=== PATIENT | female | born 1985 | race Caucasian/White ===

== ENCOUNTER 2018-08-30 23:37 | Emergency (ER) | payer SELFPAY ==
[~2018-08-30] VITALS: Ht 170.2 cm; Wt 86.4 kg
[2018-08-31 00:55] LABS: BASOPHILS % (AUTO) 0.8 % (0.0-2.0); EOSINOPHILS % (AUTO) 1.3 % (1.0-6.0); HEMATOCRIT 41.6 % (36-46); HEMOGLOBIN 13.8 g/dL (12.0-16.0); LYMPHOCYTES # (AUTO) 4.2 K/uL (1.0-4.8); LYMPHOCYTES % (AUTO) 57.5 % (22.0-44.0); MEAN CORPUSCULAR HEMOGLOBIN 29.4 pg (26.0-34.0); MEAN CORPUSCULAR HGB CONC 33.3 G/dL (31.0-37.0); MEAN CORPUSCULAR VOLUME 89 fL (80-100); MONOCYTES # (AUTO) 0.4 K/uL (0.1-1.0); MONOCYTES % (AUTO) 5.1 % (2.0-9.0); NEUTROPHILS # (AUTO) 2.6 K/uL (1.8-7.7); NEUTROPHILS % (AUTO) 35.3 % (40.0-70.0); PLATELET COUNT (AUTO) 297 K/uL (150-450); RED CELL DISTRIBUTION WIDTH 13.8 % (11.5-14.5)
[2018-08-31 01:04] LABS: ANION GAP 6 mmol/L (8-16); CALCIUM, TOTAL 8.7 mg/dL (8.8-10.5); CARBON DIOXIDE 30 mmol/L (22-29); CHLORIDE 102 mmol/L (98-107); CREATININE 0.64 mg/dL (0.60-1.30); GLOMERULAR FILTR. RATE CALC > 60 mL/min (>60); GLUCOSE,RANDOM 98 mg/dL (70-110); SODIUM SERUM 138 mmol/L (136-145); UREA NITROGEN, BLOOD 9 mg/dL (7-18)
[2018-08-31 01:04] LABS: AMPHET/METH SCREEN,URINE NEGATIVE (NEGATIVE); BARBITURATE SCREEN, URINE NEGATIVE (NEGATIVE); BENZODIAZEPINES SCREEN,URINE NEGATIVE (NEGATIVE); CANNABINOID SCREEN,URINE NEGATIVE (NEGATIVE); COCAINE SCREEN,URINE NEGATIVE (NEGATIVE); METHADONE SCREEN, URINE NEGATIVE (NEGATIVE); OPIATE SCREEN,URINE NEGATIVE (NEGATIVE)
[2018-08-31 01:07] LABS: PHENCYCLIDINE SCREEN,URINE NEGATIVE (NEGATIVE)
[2018-08-31] MEDS ORDERED: ESCI20TA PO (01:09)
[2018-08-31 01:15] LABS: ALANINE AMINOTRANSFERASE 38 U/L (12-78); ALBUMIN 3.9 g/dL (3.4-5.0); ALKALINE PHOSPHATASE 113 U/L (46-116); ASPARTATE AMINOTRANSFERASE 28 U/L (15-37); BILIRUBIN,TOTAL 0.2 mg/dL (0.1-1.0); HCG,QUANTITATIVE < 1 mIU/mL (0-6)
[2018-08-31 05:15] VITALS: BP 118/77
== END 2018-08-31 05:39 | disposition home or self-care (01) ==
LOC: EMS 23:38
DX: F10.129 Alcohol abuse with intoxication, unspecified (principal); F32.9 Major depressive disorder, single episode, unspecified; F41.9 Anxiety disorder, unspecified; F12.90 Cannabis use, unspecified, uncomplicated; Y90.8 Blood alcohol level of 240 mg/100 ml or more
CPT/HCPCS: 36415; 80053; 80307; 84702; 85025; 99285; G0480

== ENCOUNTER 2021-01-02 13:41 | Inpatient (IN) | payer MEDICAID ==
[~2021-01-02] VITALS: Ht 167.6 cm; Wt 76.6 kg
[~2021-01-02 13:41] MED LIST: ESCI20TA87 PO
[2021-01-02 14:58] LABS: BASOPHILS % (AUTO) 2.4 % (0.0-2.0); EOSINOPHILS % (AUTO) 2.5 % (1.0-6.0); HEMATOCRIT 44.4 % (36-46); HEMOGLOBIN 14.6 g/dL (12.0-16.0); LYMPHOCYTES # (AUTO) 1.2 K/uL (1.0-4.8); LYMPHOCYTES % (AUTO) 33.3 % (22.0-44.0); MEAN CORPUSCULAR HEMOGLOBIN 30.2 pg (26.0-34.0); MEAN CORPUSCULAR HGB CONC 32.8 G/dL (31.0-37.0); MEAN CORPUSCULAR VOLUME 92 fL (80-100); MONOCYTES # (AUTO) 0.2 K/uL (0.1-1.0); MONOCYTES % (AUTO) 5.3 % (2.0-9.0); NEUTROPHILS % (AUTO) 56.5 % (40.0-70.0); PLATELET COUNT (AUTO) 248 K/uL (150-450); RED BLOOD CELL COUNT(AUTO) 4.82 MIL/uL (4.00-5.20); RED CELL DISTRIBUTION WIDTH 15.5 % (11.5-14.5)
[2021-01-02 15:01] LABS: ANION GAP 14 mmol/L (8-16); CALCIUM, TOTAL 9.2 mg/dL (8.8-10.5); CARBON DIOXIDE 29 mmol/L (22-29); CHLORIDE 98 mmol/L (98-107); CREATININE 0.84 mg/dL (0.60-1.30); GLOMERULAR FILTR. RATE CALC > 60 mL/min (>60); GLUCOSE,RANDOM 91 mg/dL (70-110); POTASSIUM 4.4 mmol/L (3.5-5.1); SODIUM SERUM 141 mmol/L (136-145); UREA NITROGEN, BLOOD 8 mg/dL (7-18)
[2021-01-02 15:06] LABS: ALANINE AMINOTRANSFERASE 88 U/L (12-78); ALBUMIN 4.3 g/dL (3.4-5.0); ALKALINE PHOSPHATASE 112 U/L (46-116); ASPARTATE AMINOTRANSFERASE 118 U/L (15-37); BILIRUBIN,TOTAL 0.3 mg/dL (0.1-1.0); TOTAL PROTEIN, SERUM 8.6 g/dL (6.4-8.2)
[2021-01-02] MEDS ORDERED: LORazepam 1 MG TABLET PO ONE (15:30)
[2021-01-02] MEDS ORDERED: LORazepam 2 MG/ML VIAL IM ONE ×2 (15:45→17:15)
[2021-01-02 16:30] LABS: AMPHET/METH SCREEN,URINE NEGATIVE (NEGATIVE); BARBITURATE SCREEN, URINE NEGATIVE (NEGATIVE); BENZODIAZEPINES SCREEN,URINE POSITIVE (NEGATIVE); CANNABINOID SCREEN,URINE NEGATIVE (NEGATIVE); COCAINE SCREEN,URINE NEGATIVE (NEGATIVE); METHADONE SCREEN, URINE NEGATIVE (NEGATIVE); OPIATE SCREEN,URINE NEGATIVE (NEGATIVE)
[2021-01-02 16:31] LABS: PHENCYCLIDINE SCREEN,URINE NEGATIVE (NEGATIVE)
[2021-01-02] MEDS ORDERED: LORazepam 2 MG TABLET PO PRN (17:30)
[2021-01-02] MEDS ORDERED: ZOLPIDEM TARTRATE 10 MG TABLET PO PRN (17:30)
[2021-01-02] MEDS ORDERED: HALOPERIDOL 5 MG TABLET PO PRN (17:30)
[2021-01-02 18:02] LABS: COVID AG,FIA SOURCE NASOPHARYNGEAL
[2021-01-03] VITALS (11 sets, daily range): BP systolic 122–144; BP diastolic 64–96
[2021-01-03] MEDS ORDERED: LORazepam 2 MG TABLET PO PRN (12:30)
[2021-01-03] MEDS ORDERED: CYANOCOBALAMIN 1,000 MCG/ML VIAL IM ONE (12:30)
[2021-01-03] MEDS: MULTIVITAMINS WITH MINERALS, THERAPEUTIC TABLET PO SCH (12:55)
[2021-01-03] MEDS: FOLIC ACID 1 MG TABLET PO SCH (12:55)
[2021-01-03] MEDS: ESCITALOPRAM OXALATE 20 MG TABLET PO SCH (14:25)
[2021-01-03] MEDS: THIAMINE 100 MG TABLET PO SCH (16:48)
[2021-01-04 05:43] VITALS: BP 125/65
[2021-01-04 06:34] VITALS: BP 145/91
[2021-01-04] MEDS ORDERED: LORazepam 2 MG TABLET PO PRN (07:00)
[2021-01-04 07:57] LABS: CHOL/HDL RATIO 2.1 (3.9-5.7); FREE T4 (FREE THYROXINE) 1.05 ng/dL (0.76-1.46); THYROID STIMULATING HORMONE 1.28 uIU/mL (0.36-3.74)
[2021-01-04] MEDS: LORazepam 2 MG TABLET PO SCH ×4 (09:14→20:34)
[2021-01-04] MEDS: MULTIVITAMINS WITH MINERALS, THERAPEUTIC TABLET PO SCH (09:15)
[2021-01-04] MEDS: ESCITALOPRAM OXALATE 20 MG TABLET PO SCH (09:15)
[2021-01-04] MEDS: THIAMINE 100 MG TABLET PO SCH ×2 (09:15→16:35)
[2021-01-04] MEDS: FOLIC ACID 1 MG TABLET PO SCH (09:15)
[2021-01-04] MEDS ORDERED: CloNIDine HCL 0.1 MG TABLET PO PRN (12:15)
[2021-01-04 12:51] VITALS: BP 153/113
[2021-01-04 13:03] VITALS: BP 151/113
[2021-01-04 16:25] VITALS: BP 122/85
[2021-01-04 20:46] VITALS: BP 122/85
[2021-01-05 00:12] VITALS: BP 120/79
[2021-01-05 01:29] VITALS: BP 120/79
[2021-01-05 08:15] VITALS: BP 131/100
[2021-01-05] MEDS: MULTIVITAMINS WITH MINERALS, THERAPEUTIC TABLET PO SCH (09:10)
[2021-01-05] MEDS: THIAMINE 100 MG TABLET PO SCH ×2 (09:10→16:51)
[2021-01-05] MEDS: LORazepam 2 MG TABLET PO SCH ×4 (09:10→20:33)
[2021-01-05] MEDS: FOLIC ACID 1 MG TABLET PO SCH (09:10)
[2021-01-05] MEDS: ESCITALOPRAM OXALATE 20 MG TABLET PO SCH (09:10)
[2021-01-05 09:49] VITALS: BP 146/96
[2021-01-05 09:51] VITALS: BP 131/100
[2021-01-05 16:25] VITALS: BP 132/90
[2021-01-06 01:05] VITALS: BP 126/83
[2021-01-06 06:24] VITALS: BP 130/75
[2021-01-06] MEDS ORDERED: LORazepam 1 MG TABLET PO PRN (07:00)
[2021-01-06 08:18] VITALS: BP 126/84
[2021-01-06] MEDS: MULTIVITAMINS WITH MINERALS, THERAPEUTIC TABLET PO SCH (08:42)
[2021-01-06] MEDS: FOLIC ACID 1 MG TABLET PO SCH (08:42)
[2021-01-06] MEDS: THIAMINE 100 MG TABLET PO SCH ×2 (08:42→16:33)
[2021-01-06] MEDS: ESCITALOPRAM OXALATE 20 MG TABLET PO SCH (08:43)
[2021-01-06] MEDS: LORazepam 1 MG TABLET PO SCH ×4 (08:43→20:27)
[2021-01-06 09:58] VITALS: BP 126/84
[2021-01-06 16:07] VITALS: BP 133/89
[2021-01-06 17:10] VITALS: BP 133/89
[2021-01-07 00:10] VITALS: BP 116/65
[2021-01-07 01:36] VITALS: BP 116/65
[2021-01-07] MEDS ORDERED: LORazepam 1 MG TABLET PO PRN (07:00)
[2021-01-07] MEDS: FOLIC ACID 1 MG TABLET PO SCH (08:14)
[2021-01-07] MEDS: MULTIVITAMINS WITH MINERALS, THERAPEUTIC TABLET PO SCH (08:14)
[2021-01-07] MEDS: THIAMINE 100 MG TABLET PO SCH (08:14)
[2021-01-07] MEDS: ESCITALOPRAM OXALATE 20 MG TABLET PO SCH (08:14)
[2021-01-07 09:00] VITALS: BP 145/99
== END 2021-01-07 13:20 | disposition home or self-care (01) | DRG 751 ==
LOC: EMS 14:08 → B2S 19:30
DX: F33.2 Major depressive disorder, recurrent severe without psychotic features (principal); Z78.1 Physical restraint status; R45.851 Suicidal ideations; E78.5 Hyperlipidemia, unspecified; F10.20 Alcohol dependence, uncomplicated; Y90.8 Blood alcohol level of 240 mg/100 ml or more; D72.819 Decreased white blood cell count, unspecified; Z20.822 Contact with and (suspected) exposure to COVID-19; F12.90 Cannabis use, unspecified, uncomplicated; F41.9 Anxiety disorder, unspecified; Z91.048 Other nonmedicinal substance allergy status; Z79.899 Other long term (current) drug therapy
CPT/HCPCS: 80053; 80061; 83036; 84439; 84443; 85025; 99291; G0480; J2060; J3420

== ENCOUNTER 2021-10-01 17:41 | Emergency (ER) | payer MEDICAID ==
[~2021-10-01] VITALS: Ht 167.6 cm; Wt 77.3 kg
[2021-10-01 18:14] VITALS: BP 134/99
[2021-10-01 18:31] LABS: BASOPHILS % (AUTO) 1.8 % (0.0-2.0); EOSINOPHILS % (AUTO) 0.6 % (1.0-6.0); HEMATOCRIT 31.5 % (36-46); HEMOGLOBIN 10.1 g/dL (12.0-16.0); LYMPHOCYTES # (AUTO) 1.7 K/uL (1.0-4.8); LYMPHOCYTES % (AUTO) 37.1 % (22.0-44.0); MEAN CORPUSCULAR HEMOGLOBIN 23.8 pg (26.0-34.0); MEAN CORPUSCULAR HGB CONC 32.1 G/dL (31.0-37.0); MEAN CORPUSCULAR VOLUME 74 fL (80-100); MONOCYTES # (AUTO) 0.5 K/uL (0.1-1.0); MONOCYTES % (AUTO) 10.2 % (2.0-9.0); NEUTROPHILS # (AUTO) 2.3 K/uL (1.8-7.7); NEUTROPHILS % (AUTO) 50.3 % (40.0-70.0); PLATELET COUNT (AUTO) 290 K/uL (150-450); RED BLOOD CELL COUNT(AUTO) 4.25 MIL/uL (4.00-5.20); RED CELL DISTRIBUTION WIDTH 21.4 % (11.5-14.5)
[2021-10-01 18:40] LABS: ANION GAP 15 mmol/L (8-16); CALCIUM, TOTAL 8.5 mg/dL (8.8-10.5); CARBON DIOXIDE 25 mmol/L (22-29); CHLORIDE 101 mmol/L (98-107); CREATININE 0.63 mg/dL (0.60-1.30); GLOMERULAR FILTR. RATE CALC > 60 mL/min (>60); GLUCOSE,RANDOM 94 mg/dL (70-110); POTASSIUM 3.6 mmol/L (3.5-5.1); SODIUM SERUM 141 mmol/L (136-145); UREA NITROGEN, BLOOD 12 mg/dL (7-18)
[2021-10-01 18:46] LABS: ALANINE AMINOTRANSFERASE 18 U/L (12-78); ALBUMIN 3.8 g/dL (3.4-5.0); ALKALINE PHOSPHATASE 84 U/L (46-116); ASPARTATE AMINOTRANSFERASE 17 U/L (15-37); BILIRUBIN,TOTAL 0.1 mg/dL (0.1-1.0); TOTAL PROTEIN, SERUM 8.2 g/dL (6.4-8.2)
== END 2021-10-01 18:29 | disposition left against medical advice (07) ==
LOC: EMS 18:12
DX: F10.129 Alcohol abuse with intoxication, unspecified (principal); Z53.21 Procedure and treatment not carried out due to patient leaving prior to being seen by health care provider
CPT/HCPCS: 36415; 80053; 85025; G0480